=== PATIENT | female | born 1980 | race Two or more races ===

== ENCOUNTER 2017-02-05 10:10 | Emergency (ER) | payer SELFPAY ==
[~2017-02-05 10:10] MED LIST: AUGMENTIN 875-1 EAC2 PO; BENTYL20 MG PO; CIPRO500 MG PO; COMPAZINE10 M PO; CYCLOBENZAPRINE10 M1 PO; IBUPROFEN200 M3 PO; LEXAPRO10 MG PO; NORCO 5-325 TA1 EACH PO; NORCO 5/325 TAB1 TAB PO; NUVA RING; PREDNISONE20 M1 PO; Q-PAP EXTRA ST500 MG PO; VENTOLIN HFA18 G2 PO; ZOFRAN ODT4 MG PO; [UNRECOGNIZED DRUG - OTHER]
[2017-02-05] MEDS ORDERED: MUCINEX COLD-F177 M1 (10:18)
[2017-02-05] MEDS ORDERED: TYLENOL325 M2 PO (10:23)
[2017-02-05 10:43] LABS: URINE BILIRUBIN NEGATIVE (NEG); URINE BLOOD LARGE (NEG); URINE GLUCOSE (UA) NEGATIVE (NEG); URINE KETONE NEGATIVE (NEG); URINE LEUKOCYTE ESTERASE POSITIVE (NEG); URINE NITRITE NEGATIVE (NEG); URINE PROTEIN SMALL (NEG)
[2017-02-05 10:44] LABS: URINE APPEARANCE CLEAR; URINE COLOR YELLOW
[2017-02-05 10:52] LABS: URINE RBC RARE /[HPF] (0-5); URINE WBC 0-2 /[HPF] (0-5)
[2017-02-05] MEDS ORDERED: TYLENOL COLD &1 EAC1 PO (11:18)
[2017-02-05 11:20] LABS: ANION GAP 12 mmol/L (0-20); BLOOD UREA NITROGEN 5 mg/dl (6-24); CALCIUM 8.4 mg/dl (8.5-10.5); CARBON DIOXIDE-VENOUS 25 mmol/L (22-32); CHLORIDE 104 mmol/l (96-110); CREATININE 0.79 mg/dl (0.50-1.10); GLUCOSE 104 mg/dL (70-110); POTASSIUM 3.3 mmol/L (3.7-5.1); SODIUM 138 mmol/L (135-145); eGFR VALUE FOR BLACK >90 mL/Min
[2017-02-05 11:34] LABS: BASO % 0.2 % (0-2); EOS % 0.8 % (0-7); EOSINOPHIL ABSOLUTE COUNT 0.1 tho/cmm (0.0-0.7); IMMATURE GRANULOCYTES ABSOLUTE 0.02 tho/cmm (0-0.03); IMMATURE GRANULOCYTES PERCENT 0.3 % (0-0.3); LYMPH % 18.2 % (20-45); LYMPH ABSOLUTE COUNT 1.1 tho/cmm (0.8-4.5); MCHC MEAN CORPUSCULAR HGB CONC 34.1 % (32.0-36.0); MCV (MEAN CELL VOLUME) 87.8 fl (82.0-96.0); MEAN PLATELET VOLUME 8.9 cmc (9.4-12.4); MONO % 7.4 % (0-12); MONOCYTE ABSOLUTE COUNT 0.5 tho/cmm (0.0-1.2); NEUTROPHIL ABSOLUTE COUNT 4.5 tho/cmm (1.6-8.0); NEUTROPHIL-AUTOMATED 4.5 tho/cmm (1.6-8.0); NEUTROPHILS % 73.1 % (40-80); PLATELET COUNT 188 tho/cmm (150-450); RED BLOOD COUNT 4.67 mil/cmm (4.00-5.20); RED CELL DISTRIBUTION WIDTH 12.5 % (12.4-16.4); WHITE BLOOD COUNT 6.1 tho/cmm (4.0-10.0)
== END 2017-02-05 13:12 ==
LOC: EDMED 10:10
PROVIDERS: Emergency Medicine
DX: J10.1 Influenza due to other identified influenza virus with other respiratory manifestations (principal); F17.200 Nicotine dependence, unspecified, uncomplicated
CPT/HCPCS: J7030